=== PATIENT | female | born 1990 | race African-American/Black ===

== ENCOUNTER 2021-08-05 00:40 | Emergency (ER) | payer MEDICAID ==
[~2021-08-05] VITALS: Ht 182.9 cm; Wt 62.1 kg
--- NOTE | 2021-08-05 01:00 | NUR ---
ZOHRA FROM HER APPT, TO ER BED 12. AAOX4. NOT IN RESP DISTRESS. BROUGHT IN FOR TRIP AND FALL AND OBTAINED A 3 CM LAC ON HER CHIN. UNAPPROXIMATED, MIN BLEEDING. TETANUS UP TO DATE. PT DENIES KO. SHE IS ALSO COMPLAINING OF JAW PAIN. AWAITING MD FOR EVAL.
--- NOTE | 2021-08-05 01:15 | NUR ---
PATIENT BIBRA 79, TRIP AND FELL ON HER CHIN. 3CM LAC ON CHIN AND JAW PAIN. PATIENT IS A/O X 4, RR EVEN AND UNLABORED, NO SOB NOTED. PATIENT CONNECTED TO CODING VALIDATOR AND POX.
[2021-08-05] MEDS ORDERED: LIDOCAINE 1%-EPI 1:100,000 20 ML VIAL ONE (01:20)
--- NOTE | 2021-08-05 03:05 | NUR ---
PT OT CT
--- NOTE | 2021-08-05 03:59 | NUR ---
FOLLOWED UP WITH [facility] REGARDING IMAGING RESULT
[2021-08-05] MEDS ORDERED: BACITRACIN ZINC OINT PACKET 1 EA PACKET TP ONE (04:00)
[2021-08-05] MEDS ORDERED: ACETAMINOPHEN 325 MG TABLET PO ONE (04:30)
[2021-08-05] MEDS ORDERED: ACETAMINOPHEN 325 MG TABLET ONE (04:32)
[2021-08-05 04:43] VITALS: BP 119/67
--- NOTE | 2021-08-05 04:43 | NUR ---
Patient discharged to home in stable condition. Written and verbal after care instructions given. Patient verbalizes understanding of instruction. Pt ambulatory with a steady gait
== END 2021-08-05 04:44 | disposition home or self-care (01) ==
LOC: ER 00:46
DX: S01.81XA Laceration without foreign body of other part of head, initial encounter (principal); M54.2 Cervicalgia; R51.9 Headache, unspecified; W19.XXXA Unspecified fall, initial encounter; Y93.89 Activity, other specified; Y92.89 Other specified places as the place of occurrence of the external cause; Y99.8 Other external cause status
CPT/HCPCS: 12013; 70450; 70486; 72125; 99285; A6403 ×2; J3490

== ENCOUNTER 2021-08-07 11:02 | Emergency (ER) | payer MEDICAID ==
[~2021-08-07] VITALS: Ht 182.9 cm; Wt 62.1 kg
[2021-08-07 11:16] VITALS: BP 115/74
--- NOTE | 2021-08-07 11:16 | NUR ---
Patient discharged to home in stable condition. Written and verbal after care instructions given. Patient verbalizes understanding of instruction.
== END 2021-08-07 11:18 | disposition home or self-care (01) ==
LOC: ER 11:05
DX: S01.81XD Laceration without foreign body of other part of head, subsequent encounter (principal); Z60.2 Problems related to living alone; X58.XXXD Exposure to other specified factors, subsequent encounter

== ENCOUNTER 2021-08-13 12:34 | Emergency (ER) | payer MEDICAID ==
[~2021-08-13] VITALS: Ht 182.9 cm; Wt 62.1 kg
[2021-08-13 13:13] VITALS: BP 131/69
== END 2021-08-13 13:58 | disposition home or self-care (01) ==
LOC: ER 12:51
DX: S01.81XD Laceration without foreign body of other part of head, subsequent encounter (principal); Z60.2 Problems related to living alone; X58.XXXD Exposure to other specified factors, subsequent encounter